=== PATIENT | male | born 1975 | race Caucasian/White ===

== ENCOUNTER 2019-07-03 10:14 | Emergency (ER) | payer BC ==
[2019-07-03] MEDS ORDERED: IBUPROFEN 400 MG TAB PO ONE (10:32)
[2019-07-03] MEDS ORDERED: ACETAMINOPHEN 500 MG TAB PO ONE (10:32)
[2019-07-03 10:48] VITALS: TEMP 98.7
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
[2019-07-03 12:06] VITALS: BP 121/80; O2SAT 97
== END 2019-07-03 12:20 | disposition home or self-care (01) ==
LOC: ER 10:14
DX: S02.2XXA Fracture of nasal bones, initial encounter for closed fracture (principal); S02.32XA Fracture of orbital floor, left side, initial encounter for closed fracture; S02.31XA Fracture of orbital floor, right side, initial encounter for closed fracture; S02.40DA Maxillary fracture, left side, initial encounter for closed fracture; S02.40EA Zygomatic fracture, right side, initial encounter for closed fracture; S02.40CA Maxillary fracture, right side, initial encounter for closed fracture; S02.82XA Fracture of other specified skull and facial bones, left side, initial encounter for closed fracture; S02.81XA Fracture of other specified skull and facial bones, right side, initial encounter for closed fracture; M47.812 Spondylosis without myelopathy or radiculopathy, cervical region; J45.909 Unspecified asthma, uncomplicated; I10 Essential (primary) hypertension; K21.9 Gastro-esophageal reflux disease without esophagitis; V86.59XA Driver of other special all-terrain or other off-road motor vehicle injured in nontraffic accident, initial encounter; Y92.9 Unspecified place or not applicable